=== PATIENT | female | born 1985 | race Caucasian/White ===

== ENCOUNTER 2021-06-12 04:52 | Emergency (ER) | payer MEDICAID ==
[~2021-06-12] VITALS: Ht 157.5 cm; Wt 56.0 kg
[2021-06-12 05:02] VITALS: BP 112/73
[2021-06-12 05:41] LABS: URINE HCG NEGATIVE (NEG)
[2021-06-12 05:55] LABS: COLOR,URINE YELLOW (Yellow); GLUCOSE, URINE NEGATIVE (Neg); KETONES,URINE 40 mg/dl (Neg); LEUKOCYTE ESTERASE ,URINE NEGATIVE (Neg); NITRITES, URINE NEGATIVE (Neg); OCCULT BLOOD,URINE NEGATIVE (Neg); PH,URINE 5.5 (4.8-8.0); PROTEIN,URINE TRACE mg/dl (Neg); UA COLLECTION TYPE CLN CATCH MIDSTREAM; UROBILINOGEN,URINE 0.2 E.U/dL (0.2-1.0)
[2021-06-12 05:56] LABS: CLARITY,URINE SLIGHTLY CLOUDY (Clear)
[2021-06-12 05:58] LABS: BACTERIA,URINE FEW /HPF (Neg); MUCUS STRANDS MODERATE /LPF (Neg); RBC,URINE NONE SEEN /HPF (0-2); SQUAMOUS EPITHELIAL CELL,UR MODERATE /LPF (FEW); WBC,URINE 0-4 /HPF (0-4)
[2021-06-12 06:05] LABS: URINE AMPHETAMINE SCREEN NEGATIVE (Neg); URINE BARBITUATE SCREEN NEGATIVE (Neg); URINE BENZODIAZEPINES SCREEN NEGATIVE (Neg); URINE CANNABINOID SCREEN POSITIVE (Neg); URINE COCAINE SCREEN NEGATIVE (Neg); URINE METHADONE SCREEN NEGATIVE (Neg); URINE OPIATE SCREEN NEGATIVE (Neg); URINE PHENCYCLIDINE SCREEN NEGATIVE (Neg)
== END 2021-06-12 06:21 | disposition home or self-care (01) ==
LOC: ER 04:53
DX: M54.50 Low back pain, unspecified (principal); R10.84 Generalized abdominal pain; Z72.89 Other problems related to lifestyle
CPT/HCPCS: 80305; 81001; 81025; 99283